=== PATIENT | male | born 1985 | race African-American/Black ===

== ENCOUNTER 2023-11-18 14:22 | Emergency (ER) | payer BC, OTHER, SELFPAY ==
[2023-11-18 14:33] VITALS: BP 153/91
[2023-11-18 15:40] LABS: % Basophils 0.7 % (0-2); % Eosinophils 0.7 % (0-6); % Immature Granulocytes 0.2 % (0-0.5); % Lymphocytes 15.6 % (20.5-51.1); % Monocytes 5.3 % (1.7-9.3); % Neutrophils 77.5 % (42.2-75.2); Absolute Lymphocytes 0.9 10^3/uL (1.2-3.4); Absolute Monocytes 0.3 10^3/uL (0.1-0.6); Absolute Neutrophils 4.2 10^3/uL (1.4-6.5); Hematocrit 41.6 % (39.0-52.0); Mean Corp Hgb Conc. 33.7 g/dL (33.0-37.0); Mean Corpuscular Volume 83.2 fL (80.0-94.0); Nucleated Red Blood Cells % 0 % (-); Platelet Count 200 10^3/uL (130-400); White Blood Cell Count 5.4 10^3/uL (4.8-10.8)
[2023-11-18 15:54] LABS: ALT (SGPT) 21 U/L (0-50); AST (SGOT) 27 U/L (17-59); Albumin 4.9 g/dl (3.5-5.0); Alkaline Phosphatase 58 U/L (38-126); Blood Urea Nitrogen 12 mg/dl (9-20); Calcium 9.5 mg/dl (8.4-10.2); Carbon Dioxide 27 mmol/L (22-30); Chloride 102 mmol/L (98-107); Glucose 86 mg/dl (70-99); Potassium 3.9 mmol/L (3.5-5.1); Sodium 136 mmol/L (135-145); Total Bilirubin 0.6 mg/dl (0.2-1.3); eGFR > 60.00
[2023-11-18 16:04] LABS: Troponin I < 0.012 ng/ml
[2023-11-18 16:12] VITALS: BMI 28.2
[2023-11-18 16:46] VITALS: BP 185/76
--- NOTE | 2023-11-18 16:46 | EDRN ---
this RN went to the pts bedside to check on the pt and the pts stated to this RN, 'I am feeling heart palpitations like my heart is going to bounce out of my chest' this RN placed the pt on the monitor and HR in the 100-110's, Ruma ZULETA
notified
--- NOTE | 2023-11-18 17:07 | ED.GENMED ---
History of Present Illness
General
Chief Complaint: Weakness
Source: patient
Exam Limitations: none
Time Seen by Provider: 11/18/23 16:12
Nursing documentation reviewed up to this point in time: agreed with
Travel History
Have you had any contact with someone who has COVID-19?: No
Do you have any symptoms of coronavirus? Fever > 100 degrees, chills, cough, shortness of breath, sore throat, loss of taste or smell, muscle aches, or headache?: No
History of Present Illness
History of Present Illness:
38 y/o M with no sig pmh
here with sypmtoms of fatigue, papitations, anxiety, mouth and hand/feet tingling while at a [employer] service today
feels better now
says the past few days he has had some feelings of palpitations, sometimes feeling some pounding in chest and sometimes racing heart beat but not over 100
NO PLEURITIC PAIN, SYNCOPE, VOMITING, FEVER
see mdm
Phy Exam
Physical Exam
Physical Exam:
GENERAL: Alert , anxious
EYE: pupils equal and reactive
NECK: Supple
ENT: o/p clr, mmm.
CARDIAC: Regular rate and rhythm .no edema, no mrmur
LUNGS: Clear breath sounds bilaterally, no acute respiratory distress, no wheezes/rales/rhonchi
ABDOMEN: Soft, without focal tenderness, no r/g, no cvat, normal bowel sounds
NEUROLOGICAL: Alert and oriented, no focal neuro deficits
SKIN: Warm and dry, skin intact.
MUSCULOSKELETAL: No edema, well perfused. neg kedar's sign
PSYCH: anxious
Course
Orders/Labs/Results
Orders:
Orders
11/18/23 14:25
Electrocardiogram (*1) Urgent
Reason for Study: Chest Pain
EKG- Treatment ONCE
11/18/23 15:22
Complete Blood Count/With Diff Urgent
Comprehensive Metabolic Panel Urgent
TSH Reflex To Free T4 Urgent
Comment: ADDON
Troponin I Urgent
11/18/23 17:22
Add On- LAB Urgent
Tests Added?: tsh free t4
Abnormal Lab Results
11/18/23
15:22
Absolute Lymphs (auto) 0.9 L 10^3/uL
(1.2-3.4)
Neutrophils % 77.5 H %
(42.2-75.2)
Lymphocytes % 15.6 L %
(20.5-51.1)
11/18/23 15:22
11/18/23 15:22
Vital Signs
Initial and Last Documented VS:
Initial Vital Signs
Temp Pulse Resp BP Pulse Ox
98.0 F 93 18 153/91 100
11/18/23 14:33 11/18/23 14:33 11/18/23 14:33 11/18/23 14:33 11/18/23 14:33
Last Documented Vital Signs
Temp Pulse Resp BP Pulse Ox
97.6 F 84 16 124/85 100
11/18/23 16:46 11/18/23 17:28 11/18/23 17:28 11/18/23 17:28 11/18/23 17:28
MDM/Problems Addressed
Differential Diagnosis Includes:
anxiety, paptiations, stress, less likely pe
MDM/Problems Addressed:
38 y/o M with no sig pmh
having some emotional stress recenty due to a family friend who suddenly
having some palptiation and today during a memoral service fo his friend he became overwhelmed; got tinglin in fingers, and toes and mouth and was having palptiations which felt like strong racing heart beat
he couldn't seemt oget the sypmtos under control and then he started worrying he as going to cause an emergency and felt weak
on arrival still was having symptoms but better
now for me he feels much better
is due to travel to [facility] by himself in a few days
has been panicked about travel and something happeneing there
has never had anxiety like this before
no PE RF,, no ACS rf, no h/o thyroid disease
PERC NEG.
wella peparing
obviously mildly anxious, perserverating
w/u here unremarkble
his bp and hr came down
ekg nonihcmeic
wbc normal
trop neg
tsh neg
pt feels muh btter
will give 3 tabs xanax for flying in case of panic
return precautions.
*Critical Care Note
Total Time (30-74mins, 75-104mins- exclusive of procedures): Not Applicable
ED Attending Note
-
Portions of this chart may have been created with voice recognition software.� Occasional wrong word or��sound alike� substitutions may have occurred due to the inherent limitations of voice recognition software.
Discharge Plan
Departure
Patient Disposition: Home (Routine Discharge)
Date of Disposition: 11/18/23
Time of Disposition: 17:17
Patient with high blood pressure during this ER visit?: No
Condition: Fair
Covid-19: Not Applicable
Discharge Problem:
Palpitations
Instructions: Anxiety, Adult (DC), Palpitations (DC)
Prescriptions:
New
alprazolam 0.25 mg tablet
0.25 mg PO BID PRN (Reason: anxiety) Qty: 3 0RF
Activity Restrictions/Additional Instructions:
YOUR SYMPTOMS SEEM TO BE FROM ANXIETY
YOU SHOULD MAKE SURE TO STAY HYDRATED
IF YOU FEEL LIGHTHEADED, TRY EATING SOMETHING AND DRINKING SOME ELECTROLYTES OR WATER
IF YOU ARE IN A SEVERE ANXIETY ATTACK, TRY THE XANAX 0.25 MG
THIS CAN MAKE YOU DROWSY
RETURN FOR: SEVERE ANXIETY, SHORTNESS OF BREATH, CHEST PAIN, PASSING OUT, OR ANY CONCERNS.
i sent a thyroid test and will call you if abnormal
Interventions
Interventions:
*Risk Screen - Suicide Last Done: 11/18/23 16:12
*General Assessment Last Done: 11/18/23 14:33
*Neglect/Abuse Screening Last Done: 11/18/23 16:12
ED- Fall Risk Assessment Last Done: 11/18/23 16:12
*ED COVID-19 Vaccine History Last Done: 11/18/23 14:33
*Nursing Disposition Last Done: 11/18/23 17:55
ED- Cardiac Assessment Last Done: 11/18/23 16:12
ED- Neurological Assessment Last Done: 11/18/23 16:12
ED- Pulmonary Assessment Last Done: 11/18/23 16:12
Discharge Date and Time
Discharge Date/Time: 11/18/23 17:55
--- NOTE | 2023-11-18 17:16 | EDRN ---
the pt is resting in stretcher in the lowest position, side rails up x2, call dover within reach, HOB elevated, no s/s of distress, no c/o heart palpitations and no c/o chest pain, will continue to monitor the pt closely
[2023-11-18 17:28] VITALS: BP 124/85
[2023-11-18 18:36] LABS: TSH Reflex To Free T4 1.26 uIU/ml (0.47-4.68)
== END 2023-11-18 17:55 | disposition home or self-care (01) ==
LOC: EMR 14:22
PROVIDERS: EMERGENCY PHYSICIAN Emergency Medicine
DX: R00.2 Palpitations (principal); Z63.4 Disappearance and death of family member
CPT/HCPCS: 99284; 80053; 84443; 84484; 85025; 93005